=== PATIENT | female | born 1975 | race Two or more races ===

== ENCOUNTER 2017-12-18 14:54 | Emergency (ER) | payer OTHER ==
[~2017-12-18] VITALS: Ht 167.6 cm; Wt 77.1 kg
[~2017-12-18 14:54] MED LIST: DICY20TA PO; ZANTAC300 MG PO
== END 2017-12-18 19:05 | disposition home or self-care (01) ==
LOC: ER 14:54
DX: G44.209 Tension-type headache, unspecified, not intractable (principal); B34.9 Viral infection, unspecified

== ENCOUNTER 2017-12-25 11:36 | Outpatient (CLI) | payer OTHER | END 2017-12-25 16:45 | disposition home or self-care (01) | LOC: RAD 11:36 | DX: M54.2 Cervicalgia (principal) ==

== ENCOUNTER 2017-12-28 10:26 | Outpatient (CLI) | payer OTHER | END 2017-12-28 10:46 | disposition home or self-care (01) | LOC: SONOGRAMA 10:26 | DX: E03.8 Other specified hypothyroidism (principal); E04.1 Nontoxic single thyroid nodule ==

== ENCOUNTER 2019-05-15 16:06 | Emergency (ER) | payer OTHER ==
[~2019-05-15] VITALS: Ht 162.6 cm; Wt 74.8 kg
[2019-05-15] MEDS ORDERED: SYNTHROID75 MCG (16:29)
== END 2019-05-15 20:03 | disposition home or self-care (01) ==
LOC: ER 16:06
DX: R51 Headache (principal)

== ENCOUNTER 2020-04-10 11:05 | Emergency (ER) | payer OTHER ==
[~2020-04-10] VITALS: Ht 167.6 cm; Wt 79.8 kg
[~2020-04-10 11:05] MED LIST changes: +SYNTHROID75 MCG
== END 2020-04-10 19:49 | disposition home or self-care (01) ==
LOC: ER 11:05
DX: M54.2 Cervicalgia (principal); R53.81 Other malaise; Z03.818 Encounter for observation for suspected exposure to other biological agents ruled out

== ENCOUNTER 2021-08-26 12:25 | Emergency (ER) | payer OTHER ==
[~2021-08-26] VITALS: Ht 167.6 cm; Wt 77.1 kg
[2021-08-26] MEDS ORDERED: KETO10TA2 PO (15:35)
== END 2021-08-26 15:45 | disposition home or self-care (01) ==
LOC: ER 12:25
DX: S80.02XA Contusion of left knee, initial encounter (principal); W18.30XA Fall on same level, unspecified, initial encounter; Y93.9 Activity, unspecified; Y92.59 Other trade areas as the place of occurrence of the external cause; Y99.8 Other external cause status

== ENCOUNTER 2021-10-03 08:20 | Outpatient (CLI) | payer OTHER ==
[~2021-10-03 08:20] MED LIST changes: +KETO10TA2 PO
== END 2021-10-03 08:30 | disposition home or self-care (01) ==
LOC: MRI 08:20
DX: S82.002A Unspecified fracture of left patella, initial encounter for closed fracture (principal)
CPT/HCPCS: 73718

== ENCOUNTER 2022-01-11 15:11 | Emergency (ER) | payer OTHER ==
[~2022-01-11] VITALS: Ht 167.6 cm; Wt 71.7 kg
[2022-01-11] MEDS ORDERED: [UNRECOGNIZED DRUG - OTHER] (16:12)
== END 2022-01-11 18:54 | disposition home or self-care (01) ==
LOC: ER 15:11
DX: B34.9 Viral infection, unspecified (principal); M25.551 Pain in right hip; M79.671 Pain in right foot; R51.9 Headache, unspecified; Z20.822 Contact with and (suspected) exposure to COVID-19